=== PATIENT | male | born 1990 | race Caucasian/White ===

== ENCOUNTER 2017-05-16 17:58 | Emergency (ER) | payer OTHER, MEDICAID ==
[2017-05-16 18:08] VITALS: BP 147/103; PULSE 104; RESP 18; TEMP 98.4; O2SAT 96
[2017-05-16] MEDS ORDERED: LET GEL TOPICAL 1 EA SYR TP ONE (18:15)
[2017-05-16] MEDS ORDERED: LIDOCAINE 2% JELLY 20 ML (UROJECT) ONE (18:22)
[2017-05-16] MEDS ORDERED: ONDANSETRON 4 MG/2 ML VIAL IVP ONE (18:22)
[2017-05-16] MEDS ORDERED: HYDROmorphONE/DILAUDID 1 MG/ML SYR IVP ONE ×2 (18:22→20:20)
[2017-05-16] MEDS ORDERED: NS 1,000 ML IV ONE (18:22)
[2017-05-16] MEDS ORDERED: IOPAMIDOL (ISOVUE-300) 100 ML BTL ONE (18:32)
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
[2017-05-16 18:34] LABS: % IMMATURE GRANULYOCYTES 0.6 % (0.0-1.1); ABSOLUTE IMMATURE GRANULOCYTES 0.05 10^3/uL (0.00-0.10); ADD DIFF? NO; ADD MORPH? NO; ADD SCAN? NO; ATYPICAL LYMPHOCYTE FLAG 10 (0-99); FRAGMENT RBC FLAG 0 (0-99); HEMATOCRIT 48.9 % (40.0-51.0); HEMOGLOBIN 17.1 g/dL (13.7-17.5); LEFT SHIFT FLG 0 (0-99); LIPEMIA HEMOLYSIS FLAG 90 (0-99); MEAN CELL HEMOGLOBIN 30.6 pg (27.9-34.1); MEAN CELL VOLUME 87.5 fL (81.5-99.8); MEAN PLATELET VOLUME 11.1 fL (8.7-11.7); PLATELET CLUMPS FLAG 20 (0-99); PLATELET COUNT 261 10^3/uL (150-400); RED BLOOD CELL COUNT 5.59 10^6/uL (4.40-6.38); RED CELL DISTRIBUTION WIDTH 13.4 % (11.5-15.2)
[2017-05-16 18:43] LABS: INR 1.07 (0.83-1.16); PROTIME(PATIENT) 13.8 SEC (12.0-15.0)
[2017-05-16 18:44] LABS: APTT 31.5 SEC (23.0-38.0)
[2017-05-16 18:52] LABS: ANION GAP 15 mEq/L (8-16); CARBON DIOXIDE 20 mEq/l (22-31); CHLORIDE 104 mEq/L (97-110); CREATININE 1.5 mg/dL (0.7-1.3); ETHANOL SERUM < 10 mg/dL (0-10); GLOMERULAR FILTRATION RATE 57; GLUCOSE 87 mg/dL (70-100); POTASSIUM 4.3 mEq/L (3.5-5.2); SODIUM 139 mEq/L (134-144)
[2017-05-16] MEDS ORDERED: HYDROmorphONE/DILAUDID 1 MG/ML SYR ONE (20:16)
[2017-05-16] MEDS ORDERED: HYDROCOD/APAP 5/325 PREPACK#6 BTL TAKEHOME ONE (21:50)
[2017-05-16] MEDS ORDERED: CEPHALEXIN 500MG PREPACK#4 BTL TAKEHOME ONE (21:50)
[2017-05-16 22:54] LABS: COLOR PALE YELLOW; LEUKOCYTE ESTERASE,URINE NEGATIVE (NEGATIVE); NITRITE,URINE NEGATIVE (NEGATIVE)
== END 2017-05-16 22:30 | disposition home or self-care (01) ==
PROC: 0HQKXZZ Repair Right Lower Leg Skin, External Approach (ICD-10-PCS; principal; 2017-05-16)
PROC: 0HQFXZZ Repair Right Hand Skin, External Approach (ICD-10-PCS; principal; 2017-05-16)
DX: S61.216A Laceration without foreign body of right little finger without damage to nail, initial encounter (principal); S81.011A Laceration without foreign body, right knee, initial encounter; S51.012A Laceration without foreign body of left elbow, initial encounter; S80.211A Abrasion, right knee, initial encounter; S50.311A Abrasion of right elbow, initial encounter; S50.312A Abrasion of left elbow, initial encounter; S40.211A Abrasion of right shoulder, initial encounter; E86.9 Volume depletion, unspecified; V28.5XXA Motorcycle passenger injured in noncollision transport accident in traffic accident, initial encounter; Y92.410 Unspecified street and highway as the place of occurrence of the external cause; Y99.8 Other external cause status
CPT/HCPCS: 80305; 96374; G0480; J1170; J2405; Q9967

== ENCOUNTER 2017-05-18 13:55 | Emergency (ER) | payer OTHER, MEDICAID ==
[2017-05-18 13:59] VITALS: TEMP 97.5; O2SAT 100
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
[2017-05-18] MEDS ORDERED: LET GEL TOPICAL 1 EA SYR TP ONE ×2 (14:30)
[2017-05-18 15:57] VITALS: BP 118/70; PULSE 64; RESP 16
== END 2017-05-18 15:57 | disposition home or self-care (01) ==
PROC: 0HQKXZZ Repair Right Lower Leg Skin, External Approach (ICD-10-PCS; principal; 2017-05-18)
DX: Z48.01 Encounter for change or removal of surgical wound dressing (principal); S81.011D Laceration without foreign body, right knee, subsequent encounter; V28.2 Unspecified motorcycle rider injured in noncollision transport accident in nontraffic accident

== ENCOUNTER 2017-05-20 11:33 | Emergency (ER) | payer OTHER, MEDICAID ==
[2017-05-20 11:51] VITALS: TEMP 98.2
[2017-05-20] MEDS ORDERED: ACETAMINOPHEN 500 MG TAB PO ONE (12:40)
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
[2017-05-20] MEDS ORDERED: LIDOCAINE 2% JELLY 20 ML (UROJECT) ONE (13:09)
[2017-05-20] MEDS ORDERED: LIDOCAINE 2% JELLY 20 ML (UROJECT) UR ONE (13:22)
[2017-05-20 13:49] VITALS: BP 116/86; PULSE 84; RESP 20; O2SAT 94
== END 2017-05-20 13:49 | disposition home or self-care (01) ==
DX: S50.811D Abrasion of right forearm, subsequent encounter (principal); S40.211D Abrasion of right shoulder, subsequent encounter; S60.511D Abrasion of right hand, subsequent encounter; S60.410D Abrasion of right index finger, subsequent encounter; S60.414D Abrasion of right ring finger, subsequent encounter; S60.412D Abrasion of right middle finger, subsequent encounter; V28.4XXD Motorcycle driver injured in noncollision transport accident in traffic accident, subsequent encounter

== ENCOUNTER 2017-05-27 03:10 | Emergency (ER) | payer MEDICAID ==
[2017-05-27 03:20] VITALS: TEMP 98.2
[2017-05-27] MEDS ORDERED: NS 1,000 ML IV ONE ×2 (03:26→04:25)
[2017-05-27 03:36] LABS: % IMMATURE GRANULYOCYTES 0.7 % (0.0-1.1); ABSOLUTE IMMATURE GRANULOCYTES 0.06 10^3/uL (0.00-0.10); ADD DIFF? NO; ADD MORPH? NO; ADD SCAN? NO; ATYPICAL LYMPHOCYTE FLAG 10 (0-99); FRAGMENT RBC FLAG 0 (0-99); HEMATOCRIT 49.4 % (40.0-51.0); HEMOGLOBIN 16.6 g/dL (13.7-17.5); LEFT SHIFT FLG 0 (0-99); LIPEMIA HEMOLYSIS FLAG 80 (0-99); MEAN CELL HEMOGLOBIN 30.1 pg (27.9-34.1); MEAN CELL HEMOGLOBIN CONCENTR. 33.6 g/dL (32.4-36.7); MEAN CELL VOLUME 89.7 fL (81.5-99.8); MEAN PLATELET VOLUME 10.8 fL (8.7-11.7); PLATELET CLUMPS FLAG 0 (0-99); PLATELET COUNT 263 10^3/uL (150-400); RED BLOOD CELL COUNT 5.51 10^6/uL (4.40-6.38); RED CELL DISTRIBUTION WIDTH 12.9 % (11.5-15.2)
[2017-05-27 03:45] LABS: ALANINE AMINOTRANSFERASE 260 IU/L (21-72); ALKALINE PHOSPHATASE 46 IU/L (38-126); ANION GAP 24 mEq/L (8-16); ASPARTATE AMINOTRANSFERASE 343 IU/L (17-59); BILIRUBIN,TOTAL 1.6 mg/dL (0.1-1.4); CALCIUM 9.6 mg/dL (8.5-10.4); CARBON DIOXIDE 18 mEq/l (22-31); CHLORIDE 101 mEq/L (97-110); ETHANOL SERUM 18 mg/dL (0-10); GLOMERULAR FILTRATION RATE 41; GLUCOSE 162 mg/dL (70-100); POTASSIUM 4.3 mEq/L (3.5-5.2); SODIUM 143 mEq/L (134-144); TOTAL PROTEIN 8.1 g/dL (6.3-8.2)
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
[2017-05-27 07:29] VITALS: BP 128/58; PULSE 98; RESP 18; O2SAT 94
== END 2017-05-27 07:33 | disposition home or self-care (01) ==
LOC: EDUNIT#
DX: R40.2441 Other coma, without documented Glasgow coma scale score, or with partial score reported, in the field [EMT or ambulance] (principal); T40.601A Poisoning by unspecified narcotics, accidental (unintentional), initial encounter; F10.921 Alcohol use, unspecified with intoxication delirium; N17.9 Acute kidney failure, unspecified; J45.909 Unspecified asthma, uncomplicated; Z48.02 Encounter for removal of sutures
CPT/HCPCS: 80305; G0480

== ENCOUNTER 2017-06-29 02:28 | Emergency (ER) | payer MEDICAID ==
[2017-06-29] MEDS ORDERED: TDAP ADULT 0.5 ML INJ (BOOSTRIX) IM ONE (02:57)
--- NOTE | 2017-06-29 03:18 | EDPHY ---
H & P Stated Complaint: pt tripped and hit his hand on metal pole on his deck Time Seen by Provider: 06/29/17 02:46 HPI/ROS: HPI: The patient presents with right hand injury after a fall which occurred about 30 minutes prior to arrival. He was preparing for a yd sale in his yd in the dark and he fell forward hitting his hand on a wooden pole. He has an obvious deformity in pain ever since which is severe, achy, does not radiate and is not associated with any numbness or tingling. He does have a laceration of his hand. REVIEW OF SYSTEMS Constitutional: No fever, no chills. Musculoskeletal: No back pain. Skin: No rashes. Neurological: No headache. PMHx: Healthy TRAUMA PHYSICAL General Appearance: Alert, no distress Head: Atraumatic Eyes: Pupils equal, round, reactive Neck: Trachea midline Respiratory: Breathing comfortably Extremities: Obvious deformity to right hand overlying 4th and 5th mid metacarpals, brisk cap refill of all digits with sensation intact to light touch Neurological: A&Ox3, GCS=15,normal motor function with 5/5 strength in all 4 extremities, normal sensory exam Source: Patient Exam Limitations: No limitations - Personal History Current Tetanus Diphtheria and Acellular Pertussis (TDAP): No - Medical/Surgical History Hx Asthma: Yes Hx Chronic Respiratory Disease: No Hx Diabetes: No Hx Cardiac Disease: No Hx Renal Disease: No Hx Cirrhosis: No Hx Alcoholism: No Hx HIV/AIDS: No Hx Splenectomy or Spleen Trauma: No Other PMH: medical ADHD. surgery wisdom teeth extraction - Social History Smoking Status: Never smoked Constitutional: Initial Vital Signs Temperature (C) 36.4 C 06/29/17 02:34 Heart Rate 73 06/29/17 02:34 Respiratory Rate 22 H 06/29/17 02:34 Blood Pressure 125/77 H 06/29/17 02:34 O2 Sat (%) 94 06/29/17 02:34 O2 Delivery Mode Room Air Allergies/Adverse Reactions: No Known Allergies Allergy (Verified 05/20/17 11:49) Home Medications: Medication Instructions Recorded Adderall Xr 30 mg Capsule 06/29/17 Medical Decision Making - Diagnostics Imaging Results: Right hand three views demonstrates boxer's fracture of the 5th metacarpal neck with for shortening and angulation, fracture of the 4th metacarpal shaft, interpreted by me, radiology interpretation is pending. Repeat right hand three views demonstrates boxer's fracture with angulation measuring approximately 30 with reduction of 4th metacarpal shaft fracture, interpreted by me, radiology interpretation pending. SPLINT Procedure: Splint placement. A ortho glass [ volar, sugar tong ]splint was applied to the [body location] by [the tech]. After application of the splint I returned and re-examined the patient. The splint was adequately immobilizing the joint and distal to the splint the patient's circulation and sensation was intact. Imaging: I viewed and interpreted images myself Procedures: Procedure: Ultrasound guided forearm nerve block. Indication: Boxer's fracture The ulnar nerve was visualized using the ultrasound machine. In real-time, bupivacaine, total of 3 mL was 0.5% was injected using a 27 gauge needle just adjacent to the ulnar nerve. Patient tolerated the procedure well with no immediate complications. REDUCTION Procedure: Dislocation reduction. Indication: Dislocation The right 4th and 5th metacarpal fractures was reduced in the usual fashion using the Jahss maneuver without complications. Post reduction the patient's neurovascular exam is normal. Post reduction x-ray demonstrates reduction. The procedure was performed by myself. SPLINT Procedure: Splint placement. A ortho glass ulnar gutter splint was applied to the right hand by the tech. After application of the splint I returned and re-examined the patient. The splint was adequately immobilizing the joint and distal to the splint the patient's circulation and sensation was intact. Differential Diagnosis: This is a 26-year-old healthy man who presents after hitting his right, dominant hand on a wooden pole sustaining obvious deformity with laceration. Differential diagnosis includes boxer's fracture open, metacarpal dislocation, metacarpal fracture. In the emergency department, ulnar nerve block was performed with some improvement in his pain. Subsequently hematoma block was performed. The patient was placed in finger traps and then reduction was performed with splinting. He received a dose of Ancef. I consulted with Dr. Romero of Orthopedics hand and he recommends admission for OR given the open nature of this fracture. I ordered the patient a bed in the hospital. Subsequently, the patient expressed that he has to go home as he was preparing for a [employer] sale and all of his belongings are in his yard. He would like to put them back in his house so they do not get stolen. I explained the risks of leaving which include worsening infection and poor outcome. We consulted with Dr. Romero and the patient will return back to the hospital later today for his operation. He will be discharged AMA. He accepts the risks of leaving. - Data Points Medications Given: Discontinued Medications Diphtheria/Tetanus/Acell Pertussis (Boostrix) 0.5 ml IM .ONCE ONE Stop: 06/29/17 02:58 Last Admin: 06/29/17 03:13 Dose: 0.5 ml Fentanyl (Sublimaze) 100 mcg IVP EDNOW ONE Stop: 06/29/17 03:44 Last Admin: 06/29/17 03:50 Dose: Not Given Cefazolin Sodium/Dextrose (Ancef 1 Gm (Premix)) 50 mls @ 200 mls/hr IV EDNOW ONE PRN Reason: Protocol Stop: 06/29/17 03:11 Last Admin: 06/29/17 03:14 Dose: 50 mls Ibuprofen (Motrin) 600 mg PO EDNOW ONE Stop: 06/29/17 04:01 Last Admin: 06/29/17 04:20 Dose: 600 mg Departure - Departure Disposition: Home, Routine, Self-Care Clinical Impression: Open boxer's fracture Qualifiers: Encounter type: initial encounter Qualified Code(s): S62.339B - Displaced fracture of neck of unspecified metacarpal bone, initial encounter for open fracture Fracture, metacarpal Qualifiers: Encounter type: initial encounter Metacarpal bone: fourth Fracture type: closed Metacarpal location: shaft Fracture alignment: displaced Laterality: right Qualified Code(s): S62.324A - Displaced fracture of shaft of fourth metacarpal bone, right hand, initial encounter for closed fracture Condition: Good
[2017-06-29] MEDS ORDERED: fentaNYL 100 MCG/2 ML INJ IVP ONE (03:43)
[2017-06-29] MEDS ORDERED: IBUPROFEN 600 MG TAB PO ONE (04:00)
[2017-06-29] MEDS ORDERED: NS 1,000 ML IV ONE (05:28)
[2017-06-29 06:50] VITALS: BP 121/74; PULSE 66; RESP 16; TEMP 97.9; O2SAT 96
[2017-06-29] MEDS ORDERED: BUPIVACAINE 0.25% 30 ML SDV ONE (15:07)
== END 2017-06-29 06:42 | disposition home or self-care (01) ==
LOC: UNDOADMOB 05:27
PROC: 0PSPXZZ Reposition Right Metacarpal, External Approach (ICD-10-PCS; principal; 2017-06-29)
DX: S62.336B Displaced fracture of neck of fifth metacarpal bone, right hand, initial encounter for open fracture (principal); S62.324A Displaced fracture of shaft of fourth metacarpal bone, right hand, initial encounter for closed fracture; J45.909 Unspecified asthma, uncomplicated; Z23 Encounter for immunization; W01.198A Fall on same level from slipping, tripping and stumbling with subsequent striking against other object, initial encounter; Y92.89 Other specified places as the place of occurrence of the external cause; Y99.8 Other external cause status; Y93.89 Activity, other specified
CPT/HCPCS: 96365; J0690; J3010

== ENCOUNTER 2017-06-29 13:36 | Day surgery (SDC) | payer MEDICAID ==
[2017-06-29] MEDS ORDERED: NS 1,000 ML IV ONE (13:59)
[2017-06-29] MEDS ORDERED: LIDOCAINE 1% 2 ML INJ ID PRN (13:59)
[2017-06-29] MEDS ORDERED: MIDAZOLAM 2 MG/2 ML VIAL IVP ONE (16:05)
[2017-06-29] MEDS ORDERED: HYDROCODONE/APAP 5/325 TAB PO PRN (16:06)
[2017-06-29] MEDS ORDERED: ACETAMINOPHEN 500 MG TAB PO PRN (16:06)
[2017-06-29] MEDS ORDERED: HYDROmorphONE/DILAUDID 1 MG/ML SYR IVP PRN (16:06)
[2017-06-29] MEDS ORDERED: NALOXONE HCL 0.4 MG/ML INJ IVP PRN (16:06)
[2017-06-29] MEDS ORDERED: fentaNYL 100 MCG/2 ML INJ IVP PRN (16:06)
[2017-06-29] MEDS ORDERED: OXYCODONE/APAP 5/325 TAB PO PRN (16:06)
[2017-06-29] MEDS ORDERED: ONDANSETRON 4 MG/2 ML VIAL IVP PRN (16:06)
--- NOTE | 2017-06-29 16:08 | PDANEPAE ---
ANE History of Present Illness RIGHT HAND METACARPAL orif ANE Past Medical History - Pulmonary History Hx Oxygen in Use at Home: No Hx Sleep Apnea: No - Endocrine History Hx Diabetes: No ANE Review of Systems Review of systems is: negative - Exercise capacity METS (RN): 4 METS ANE Patient History - Allergies Allergies/Adverse Reactions: No Known Allergies Allergy (Verified 05/20/17 11:49) - Home Medications Home Medications: Adderall Xr 30 mg Capsule 06/29/17 [Last Taken 06/29/17 01:00] - NPO status NPO Since - Liquids (Date): 06/29/17 NPO Since - Liquids (Time): 02:00 NPO Since - Solids (Date): 06/29/17 NPO Since - Solids (Time): 01:00 - Smoking Hx Smoking Status: Never smoked ANE Labs/Vital Signs - Vital Signs Blood Pressure: 132/76 Heart Rate: 59 Respiratory Rate: 16 O2 Sat (%): 99 Height: 187.96 cm Weight: 83.915 kg ANE Physical Exam - Airway Neck exam: FROM Mallampati Score: Class 2 Mouth exam: normal dental/mouth exam - Pulmonary Pulmonary: clear to auscultation - Cardiovascular Cardiovascular: regular rate and rhythym - ASA Status ASA Status: I ANE Anesthesia Plan Anesthesia Plan: GA w LMA
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
[2017-06-29] MEDS ORDERED: ceFAZolin 2 GM/DEXTROSE 100 ML IV ONE (16:28)
[2017-06-29] MEDS ORDERED: PROPOFOL 200 MG/20 ML VIAL ONE (16:41)
[2017-06-29] MEDS ORDERED: fentaNYL 100 MCG/2 ML INJ ONE ×3 (16:42→19:13)
[2017-06-29] MEDS ORDERED: ONDANSETRON 4 MG/2 ML VIAL ONE (16:46)
[2017-06-29] MEDS ORDERED: DEXAMETHASONE 4 MG/ML VIAL ONE (16:46)
[2017-06-29] MEDS ORDERED: HYDROmorphONE/DILAUDID 2 MG/ML INJ ONE (16:51)
[2017-06-29] MEDS ORDERED: ceFAZolin 1 GM/5 ML SYR ONE ×2 (17:06→17:14)
--- NOTE | 2017-06-29 18:42 | POSTANESTH ---
Post Anesthetic Evaluation Cardiovascular Status: Normal, Stable Respiratory Status: Normal, Stable Level of Consciousness/Mental Status: Can Participate in Eval, Alert and Oriented Pain Control: Adequate, Prn Tx Ordered Nausea/Vomiting Control: Adequate, Prn Tx Ordered Complications Possibly Related to Anesthesia: None Noted
[2017-06-29] MEDS: fentaNYL 100 MCG/2 ML INJ IVP PRN ×2 (18:46→18:56)
[2017-06-29] MEDS ORDERED: HYDROmorphONE/DILAUDID 1 MG/ML SYR ONE (18:49)
[2017-06-29] MEDS: HYDROmorphONE/DILAUDID 1 MG/ML SYR IVP PRN ×2 (18:51→19:06)
[2017-06-29] MEDS ORDERED: HYDROCODONE/APAP 5/325 TAB ONE (19:03)
--- NOTE | 2017-06-29 19:20 | GOP ---
[f rep st] OPERATIVE REPORT DATE OF OPERATION: 06/29/2017 SURGEON: Singh Romero MD ANESTHESIA: General. PREOPERATIVE DIAGNOSIS: Fracture of right 4th and 5th metacarpals (grade 1, open). POSTOPERATIVE DIAGNOSIS: Fracture of right 4th and 5th metacarpals (grade 1, open). PROCEDURE PERFORMED: 1. Open reduction and internal fixation, right 4th and 5th metacarpal fractures. 2. Debridement, right 4th, 5th open fractures metacarpals. 3. Application of coaptation splint. FINDINGS: DESCRIPTION OF PROCEDURE: Patient was taken to the operating room, administered general anesthesia, placed in the supine position. The right upper extremity was prepped and draped in normal sterile fashion. The puncture wound was thoroughly scrubbed. The wound was then opened in an interval betw een the 4th and 5th metacarpals. It was carried through dermal and subcutaneous tissues. The 5th metacarpal was exposed first. There was comminution of the 5th metacarpal head. A T-plate was utilized to obtain purchase into the medial and lateral fracture fragments extending into the he ad segment, and still traversed the proximal fracture segment. This was a 1.5 mm plate that was sec ured with three 1.5 mm screws proximally and three 1.5 cortical screws distally. Thorough lavage wa s performed with copious amounts of normal saline. The fracture bone ends were thoroughly curetted and cleaned, and cleansed prior to application of the plate. The 4th metacarpal was then exposed. The bone ends were brought out. Thorough lavage and scrubbing of the bone ends was performed. The fracture was then reduced. It was secured with a 1.5 mm strai ght plate. There were two 1.5 mm screws used distally and three 1.5 mm screws used proximally for f ixation. Again, thorough lavage with saline solution with 2 g of Ancef per 3000 cc was passed throu gh the incision. Closure of the fascia layer was performed with a 4-0 Vicryl suture followed by chacha sure of the subcutaneous tissues with a 5-0 nylon. A sterile compression dressing was applied follo wed by a coaptation splint. The patient tolerated the procedure well, was transferred back to [facility] in stable condition. No operative complications. COMPLICATIONS: None. /[id number]/MODL
[2017-06-29 19:37] VITALS: BP 133/74; PULSE 83; RESP 18; TEMP 97.5; O2SAT 92
[2017-06-29] MEDS ORDERED: BUPIVACAINE 0.25% 30 ML SDV ONE (20:27)
== END 2017-06-29 19:40 | disposition home or self-care (01) ==
LOC: FSGY 13:36
PROVIDERS: ATTEND Orthopaedic Surgery Sports Medicine
PROC: 0PSP04Z Reposition Right Metacarpal with Internal Fixation Device, Open Approach (ICD-10-PCS; principal; 2017-06-29 16:00)
DX: S62.396B Other fracture of fifth metacarpal bone, right hand, initial encounter for open fracture (principal); S62.324B Displaced fracture of shaft of fourth metacarpal bone, right hand, initial encounter for open fracture; W01.198A Fall on same level from slipping, tripping and stumbling with subsequent striking against other object, initial encounter; Y92.007 Garden or yard of unspecified non-institutional (private) residence as the place of occurrence of the external cause; Y93.89 Activity, other specified
CPT/HCPCS: 96365; J0690; J1100; J1170; J2250; J2405; J2704; J3010